=== PATIENT | male | born 1960 | race Caucasian/White ===

== ENCOUNTER 2017-12-26 06:56 | Day surgery (SDC) | payer OTHER ==
[2017-12-26 07:52] LABS: ADD MAN DIFF? NO
[2017-12-26 07:54] LABS: BASOPHIL # 0.1 10^3/ul (0.0-0.1); EOSINOPHILS # 1.1 10^3/ul (0.0-0.5); HEMOGLOBIN 15.1 g/dl (14.0-18.0); LYMPHOCYTES # 2.1 10^3/ul (0.8-2.9); LYMPHOCYTES % 23.8 % (15.0-51.0); MEAN CORPUSCULAR HEMOGLOBIN 29.7 pg (29.0-33.0); MEAN CORPUSCULAR VOLUME 82.7 fl (82.0-101.0); MEAN PLATELET VOLUME 10.5 fl (7.4-10.4); MONOCYTE # 0.6 10^3/ul (0.3-0.9); NEUTROPHIL # 4.9 10^3/ul (1.6-7.5); NEUTROPHILS % 55.9 % (39.0-77.0); PLATELET COUNT 248 10^3/UL (140-415); RED BLOOD COUNT 5.08 10^6/ul (4.70-6.10); RED CELL DISTRIBUTION WIDTH 11.9 % (11.5-14.5)
[2017-12-26 07:54] LABS: WHITE BLOOD COUNT 8.8 10^3/ul (4.8-10.8)
[2017-12-26] MEDS: INSULIN ASPART [NOVOLOG] 3 ML PEN SC ×2 (08:09→14:35)
[2017-12-26 08:14] LABS: ANION GAP 15 (8-16); CARBON DIOXIDE 25 mmol/L (21-31); CHLORIDE 104 mmol/L (97-110); GLUCOSE 324 mg/dl (70-220)
[2017-12-26 08:22] LABS: BLOOD UREA NITROGEN 16 mg/dl (7-20); CALCIUM 9.1 mg/dl (8.4-10.2); CREATININE 0.71 mg/dl (0.61-1.24); POTASSIUM 3.8 mmol/L (3.5-5.1); SODIUM 140 mmol/L (135-144)
[2017-12-26 08:24] LABS: PARTIAL THROMBOPLASTIN TIME 27.3 Sec (25.0-35.0); PROTIME 12.2 Sec (11.9-14.9)
[2017-12-26] MEDS ORDERED: LIDOCAINE 1% (MDV) 20 ML INJ (09:27)
[2017-12-26] MEDS ORDERED: IODIXANOL LOCM 100 ML BTL (09:27)
[2017-12-26] MEDS ORDERED: MIDAZOLAM 1 MG/ML 2 ML INJ (09:28)
[2017-12-26] MEDS ORDERED: FENTAnyl 50 MCG/ML VIAL (09:29)
[2017-12-26] MEDS ORDERED: SOD CHLORIDE 0.9% 1,000 ML IV ×2 (10:00→10:32)
[2017-12-26] MEDS ORDERED: ONDANSETRON 4 MG INJ IV (11:00)
[2017-12-26] MEDS ORDERED: AL HYDROX/MG HYDROX/SIMETH 30 ML CUP PO (11:00)
[2017-12-26] MEDS ORDERED: morphine 2 MG INJ IV (11:00)
[2017-12-26] MEDS ORDERED: ACETAMINOPHEN 325 MG TAB PO (11:00)
[2017-12-26] MEDS ORDERED: ACCU-CHEK XX (11:30)
== END 2017-12-26 16:25 | disposition home or self-care (01) ==
LOC: SDS 06:56
DX: I25.10 Atherosclerotic heart disease of native coronary artery without angina pectoris (principal)
CPT/HCPCS: 80048; 82962; 85025; 85610; 85730; 93005; 93454